=== PATIENT | female | born 1985 | race Asian ===

== ENCOUNTER → 2023-02-16 | Outpatient (CLI) | payer SELFPAY | END | disposition home or self-care (01) | LOC: EMPLOY 13:28 → RAD 13:28 | PROVIDERS: ATTEND Internal Medicine | DX: Z02.1 Encounter for pre-employment examination (principal); R76.11 Nonspecific reaction to tuberculin skin test without active tuberculosis ==

== ENCOUNTER 2025-03-04 14:44 | Emergency (ER) | payer OTHER ==
[~2025-03-04] VITALS: Ht 152.4 cm; Wt 61.2 kg
[2025-03-04] MEDS ORDERED: Metoclopramide Hydrochloride 10 MG/2 ML VIAL IV ONE (15:10)
[2025-03-04] MEDS ORDERED: diphenhydrAMINE hydrochloride 50 MG/ML VIAL IV ONE (15:10)
[2025-03-04] MEDS ORDERED: SODIUM CHLORIDE 0.9% 1,000 ML IV ONE (15:10)
[2025-03-04] MEDS ORDERED: ACETAMINOPHEN 325 MG TAB PO ONE (15:10)
[2025-03-04 15:22] LABS: BASO # 0.0 10*3/uL (0.0-0.1); BASO % 0.4 % (0.0-1.0); EOS # 0.1 10*3/uL (0.0-0.4); EOS % 1.5 % (1.0-4.0); MEAN CELL VOLUME 91.1 fl (81.0-99.0); MEAN CORPUSCULAR HGB 29.3 pg (27.0-31.0); MEAN PLATELET VOLUME 9.3 fl (9.6-12.3); MONO # 0.6 10*3/uL (0.1-1.0); MONO % 6.1 % (3.0-9.0); NEUT # 6.2 10*3/uL (2.3-7.9); NEUT % 66.9 % (47.0-73.0); NUCLEATED RED BLOOD CELL 0.0 % (0.0-0.0); NUCLEATED RED BLOOD CELL 0.0 10*3/uL (0.0-0.0); PLATELET COUNT AUTOMATED 330 10*3/uL (130-400); RED CELL DISTRI WIDTH 11.7 % (0-14.5)
[2025-03-04 15:53] LABS: BUN 12 mg/dl (9-23)
[2025-03-04] MEDS ORDERED: REGLAN10 M1 PO (16:53)
[2025-03-04] MEDS ORDERED: IBU800 M2 PO (16:53)
== END 2025-03-04 16:58 | disposition home or self-care (01) ==
LOC: ED 14:44
PROVIDERS: Emergency Medicine
DX: R51.9 Headache, unspecified (principal)